=== PATIENT | male | born 1980 | race Two or more races ===

== ENCOUNTER → 2016-06-19 | Emergency (ER) | payer MEDICARE, MEDICAID ==
[~2016-06-19] VITALS: Ht 170.2 cm; Wt 104.3 kg
[~2016-06-19] MED LIST: Acetaminophen 500mg (ES) tab ORAL ONE; BACITRACIN ZIN120 GM TP; BACITRACIN15 GM TOPIC; Bacitracin Oint UD TOPIC ONE; CLINDAMYCIN HC300 MG ORAL; CLOTRIMAZOLE AF30 GM TOPIC; DOUBLE ANTIBI28.4 GM TP; IBUPROFEN600 MG ORAL
[2016-06-19 15:42] VITALS: BP 116/83
--- NOTE | 2016-06-19 16:20 | Emergency Room Report ---
History of Present Illness General Chief Complaint: Pain Source: Patient Present Illness HPI 35 YO male presents emergency department complaining of 10/ 10 in severity right hand pain status post accidentally bumping his hand into a concrete wall. Patient also reports small open wound that is not bleeding at this time. Patient states that he is up to date with tetanus vaccination. he states pain is exacerbated upon movement of the right hand for example making a fist. Patient denies bruising reports mild swelling denies erythema or increased temperature palpation patient denies previous injury. Denies numbness tingling or loss of sensation or gross motor movements of the extremities, incontinence of bowel or bladder. Denies CP, Palpitations, LOC, AMS, dizziness, Changes in Vision, Sensation, paresthesias, or a sudden severe headache. Allergies: Coded Allergies: No Known Allergies (Unverified , 12/28/14) Patient History Past Medical History: see triage record Past Surgical History: none Pertinent Family History: none Immunizations: UTD Reviewed Nursing Documentation: PMH: Agreed, PSxH: Agreed Nursing Documentation-PMH Past Medical History: No Stated History Review of Systems All Other Systems: negative except mentioned in HPI Physical Exam Vital Signs Date Time Temp Pulse Resp B/P Pulse Ox O2 Delivery O2 Flow Rate FiO2 06/19/16 15:12 97.3 100 16 116/83 98 Room Air Sp02 EP Interpretation: reviewed, normal General Appearance: no apparent distress, alert, GCS 15, non-toxic Head: normocephalic, atraumatic Eyes: bilateral eye PERRL, bilateral eye normal inspection ENT: hearing grossly normal, normal pharynx, no angioedema, normal voice Neck: full range of motion, supple/symm/no masses Respiratory: chest non-tender, lungs clear, normal breath sounds, speaking full sentences Cardiovascular #1: regular rate, rhythm, no edema Rectal: deferred Musculoskeletal: back normal, gait/station normal, normal range of motion, tender - TTP to lateral aspect of the right hand and the dorsum of the 4th and 5th metacarpals, mild swelling noted, no bruising, no erythema, pt. had FROM with pain, pt. is NVI, small 0.5cm superficial abrasion noted which is older in appearance, no evidence of secondary infection. Neurologic: alert, oriented x3, responsive, motor strength/tone normal, sensory intact, speech normal Psychiatric: judgement/insight normal, memory normal, mood/affect normal, no suicidal/homicidal ideation Skin: normal color, no rash, warm/dry, well hydrated, wd healing/no infection noted - small 0.5cm superficial abrasion noted which is older in appearance, no evidence of secondary infection. , abrasions - small 0.5cm superficial abrasion noted which is older in appearance, no evidence of secondary infection. Lymphatic: no adenopathy Medical Decision Making PA Attestation Dr. Archer is my supervising Physician whom patient management has been discussed with. Diagnostic Impression: Primary Impression: Contusion of hand, right Additional Impression: Abrasion ER Course 35 YO male presents emergency department complaining of 10/ 10 in severity right hand pain status post accidentally bumping his hand into a concrete wall. Patient also reports small open wound that is not bleeding at this time. Patient states that he is up to date with tetanus vaccination. he states pain is exacerbated upon movement of the right hand for example making a fist. Ddx considered but are not limited to Fracture, dislocation, contusion, Sprain/ Strain/Spasm, Epidural abscess, Neoplastic mets. Vital signs: are WNL, pt. is afebrile H&PE are most consistent with right hand contusion, and superficial older abrasion, no evidence of infection, will r/o fx with imaging. ORDERS: - X-ray Right hand 3 views - negative for fx, Dislocation, or significant soft tissue injury, per preliminary read in ED by Dr. Archer ED INTERVENTIONS: - 500mg Tylenol PO -Bacitracin is applied after wound cleaning by ED research laboratory technician, pt. tolerated well. DISCHARGE: At this time pt. is stable for d/c to home. Will provide printed patient care instructions, and any necessary prescriptions. Care plan and follow up instructions have been discussed with the patient prior to discharge. Last Vital Signs Date Time Temp Pulse Resp B/P Pulse Ox O2 Delivery O2 Flow Rate FiO2 06/19/16 15:42 97.3 100 16 116/83 98 Room Air Disposition: HOME, SELF-CARE Condition: Stable Scripts Bacitracin Zinc/Polymyx B Sulf (Double Antibiotic Ointment) 28.4 Gm Oint...g. 1 APPLIC TP BID, #28.4 GM Prov: So Sandoval 06/19/16 Ibuprofen* (MOTRIN*) 600 Mg Tablet 600 MG ORAL THREE TIMES A DAY, #30 TAB 0 Refills Prov: So Sandoval 06/19/16 Patient Instructions: Abrasion, [id number], Contusion Additional Instructions: Take medications as directed. Follow up with PCP in 3-5 days Return sooner to ED if new symptoms occur, or current symptoms become worse. - Please note that this Emergency Department Report was dictated using [employer] technology software, occasionally this can lead to erroneous entry secondary to interpretation by the dictation equipment. So Sandoval Jun 19, 2016 16:20
--- NOTE | 2016-06-19 16:39 | Diagnostic Imaging Report ---
Indication: PAIN Technique: 3 views right hand Comparison: none Findings: Small sclerotic opacity, likely bone island within the first distal phalanx. No acute fractures. No dislocations. Joint spaces are preserved. Impression: No acute bony trauma This agrees with the preliminary interpretation provided by the emergency room physician
== END | disposition home or self-care (01) ==
LOC: EMR 16:30
DX: S60.221A Contusion of right hand, initial encounter (principal); S60.511A Abrasion of right hand, initial encounter; X58.XXXA Exposure to other specified factors, initial encounter; Y93.9 Activity, unspecified; Y92.9 Unspecified place or not applicable
CPT/HCPCS: 99284

== ENCOUNTER 2016-12-08 16:26 | Emergency (ER) | payer MEDICARE, MEDICAID ==
[~2016-12-08] VITALS: Ht 170.2 cm; Wt 104.3 kg
[~2016-12-08 16:26] MED LIST changes: -Acetaminophen 500mg (ES) tab ORAL ONE; -Bacitracin Oint UD TOPIC ONE
[2016-12-08 16:45] VITALS: BP 128/82
--- NOTE | 2016-12-08 16:52 | Emergency Room Report ---
History of Present Illness General Chief Complaint: Abdominal Pain Source: Patient Present Illness HPI The patient presents with left upper quadrant pain nausea and loose stools. He denies any vomiting. He denies fever. The pain is 10/10 at this time. Feels like burning pressure. Doesn't have any medication for this. He's had this problem in the past. Has had for about a week (though RN notes state 2 weeks). Right now the pain is constant. Denies any fevers, cough, upper respiratory symptoms, dysuria. He feels weak. Doesn't take any medication for this. The patient denies any major medical problems. Denies alcohol or smoking. No recent travel, antibiotics, unusual foods or contacts. Allergies: Coded Allergies: No Known Allergies (Unverified , 12/28/14) Patient History Past Medical History: see triage record Social History: Denies: alcohol use, smoking Social History Narrative Volunteer Reviewed Nursing Documentation: PMH: Agreed, PSxH: Agreed Nursing Documentation-PMH Past Medical History: No Stated History Review of Systems All Other Systems: negative except mentioned in HPI Physical Exam Vital Signs Date Time Temp Pulse Resp B/P Pulse Ox O2 Delivery O2 Flow Rate FiO2 12/08/16 16:33 97.3 100 18 120/80 98 Room Air Sp02 EP Interpretation: reviewed, normal General Appearance: well appearing, no apparent distress, GCS 15 Head: normocephalic Eyes: bilateral eye PERRL, bilateral eye normal inspection ENT: moist mucus membranes Neck: supple Respiratory: lungs clear, normal breath sounds Cardiovascular #1: regular rate, rhythm Cardiovascular #2: 2+ radial (R) Gastrointestinal: normal inspection, normal bowel sounds, no mass, non- distended, no guarding, no rebound, tenderness - epigastric, overweight Musculoskeletal: back normal, gait/station normal, normal range of motion Neurologic: alert, oriented x3, grossly normal Psychiatric: mood/affect normal Skin: normal inspection, warm/dry Medical Decision Making Diagnostic Impression: Primary Impression: Gastroenteritis ER Course Patient presents with epigastric pain and nausea. Differential includes gastritis, ulcer, GERD, diverticulitis amongst others. He is in his hands no surgical problem at this time. Evaluation with labs and x-ray. In addition he' ll be treated with IV hydration, Zofran and Pepcid with some morphine. Labs remarkable for normal WBC and H/H. Rest unremarkable. Stool pend. Xray below. Patient improved with treatment. Discussed pending test. Patient stable for outpatient observation and treatment. Laboratory Tests Test 12/08/16 16:50 White Blood Count 8.1 K/UL (4.8-10.8) Red Blood Count 4.09 M/UL (4.70-6.10) L Hemoglobin 12.5 G/DL (14.2-18.0) L Hematocrit 36.0 % (42.0-52.0) L Mean Corpuscular Volume 88 FL (80-99) Mean Corpuscular Hemoglobin 30.6 PG (27.0-31.0) Mean Corpuscular Hemoglobin Concent 34.7 G/DL (32.0-36.0) Red Cell Distribution Width 13.6 % (11.6-14.8) Platelet Count 251 K/UL (150-450) Mean Platelet Volume 6.9 FL (6.5-10.1) Neutrophils (%) (Auto) 50.3 % (45.0-75.0) Lymphocytes (%) (Auto) 37.1 % (20.0-45.0) Monocytes (%) (Auto) 9.3 % (1.0-10.0) Eosinophils (%) (Auto) 1.9 % (0.0-3.0) Basophils (%) (Auto) 1.4 % (0.0-2.0) Sodium Level 136 mEQ/L (135-145) Potassium Level 3.5 mEQ/L (3.4-4.9) Chloride Level 97 mEQ/L (98-107) L Carbon Dioxide Level 28 mEQ/L (20-30) Anion Gap 11 (5-15) Blood Urea Nitrogen 9 mg/dL (7-23) Creatinine 1.2 mg/dL (0.7-1.2) Estimate Glomerular Filtration Rate > 60 mL/min (>60) Glucose Level 77 mg/dL (74-106) Calcium Level 9.7 mg/dL (8.6-10.2) Total Bilirubin 0.5 mg/dL (0.0-1.2) Aspartate Amino Transferase (AST) 33 U/L (5-40) Alanine Aminotransferase (ALT) 23 U/L (3-41) Alkaline Phosphatase 74 U/L (40-129) Total Protein 7.9 g/dL (6.6-8.7) Albumin 4.4 g/dL (3.5-5.2) Globulin 3.5 g/dL Albumin/Globulin Ratio 1.2 (1.0-2.7) Lipase 16 U/L (< 60) EKG Diagnostic Results Rate: normal Rhythm: NSR Rhythm Strip Diag. Results EP Interpretation: yes Rhythm: NSR, no PVC's, no ectopy Other X-Ray Diagnostic Results Other X-Ray Diagnostic Results : X-Ray ordered: abd # of Views/Limited Vs Complete: 2 View Indication: Pain EP Interpretation: Yes Interpretation: nonspecific bowel gas, no sbo, other - no calcifications masses Impression: No acute disease Interpreting ER Provider: Electronically signed by Sincere Evans MD Last Vital Signs Date Time Temp Pulse Resp B/P Pulse Ox O2 Delivery O2 Flow Rate FiO2 12/08/16 18:59 98 18 125/82 100 Room Air 12/08/16 18:45 97.4 Status: improved Disposition: HOME, SELF-CARE Condition: Improved Scripts Diphenoxylate HCl/Atropine (Lomotil Tablet) 1 Each Tablet 1 EACH PO BID, #6 TAB Prov: Sincere Evans M.D. 12/08/16 Ondansetron Odt* (ZOFRAN ODT*) 4 Mg Tab.rapdis 4 MG ORAL Q8H Y for Nausea & Vomiting, #6 TAB 1 Refill Prov: Sincere Evans M.D. 12/08/16 Sincere Evans M.D. Dec 08, 2016 16:52
[2016-12-08] MEDS ORDERED: Morphine Sulfate 4mg/ml Inj IVP ONE (17:00)
[2016-12-08] MEDS ORDERED: Famotidine 20 MG/ 2ML VIAL IVP ONE (17:00)
[2016-12-08 17:26] LABS: BASOPHILS % (AUTO) 1.4 % (0.0-2.0); EOSINOPHILS % (AUTO) 1.9 % (0.0-3.0); LYMPHOCYTES % (AUTO) 37.1 % (20.0-45.0); MEAN CORPUSCULAR HEMOGLOBIN 30.6 PG (27.0-31.0); MEAN CORPUSCULAR HGB CONC 34.7 G/DL (32.0-36.0); MEAN CORPUSCULAR VOLUME 88 FL (80-99); MEAN PLATELET VOLUME 6.9 FL (6.5-10.1); MONOCYTES % (AUTO) 9.3 % (1.0-10.0); NEUTROPHILS % (AUTO) 50.3 % (45.0-75.0); PLATELET COUNT 251 K/UL (150-450); RED BLOOD COUNT 4.09 M/UL (4.70-6.10); RED CELL DISTRIBUTION WIDTH 13.6 % (11.6-14.8); WHITE BLOOD COUNT 8.1 K/UL (4.8-10.8)
[2016-12-08 17:46] LABS: ALANINE AMINOTRANSFERASE 23 U/L (3-41); ALBUMIN/GLOBULIN RATIO 1.2 (1.0-2.7); ANION GAP 11 (5-15); ASPARTATE AMINO TRANSFERASE 33 U/L (5-40); CALCIUM 9.7 mg/dL (8.6-10.2); CARBON DIOXIDE 28 mEQ/L (20-30); CHLORIDE 97 mEQ/L (98-107); CREATININE 1.2 mg/dL (0.7-1.2); GLOMERULAR FILTRATION RATE > 60 mL/min (>60); HEMOLYSIS 4; LIPASE 16 U/L (< 60); POTASSIUM 3.5 mEQ/L (3.4-4.9); SODIUM 136 mEQ/L (135-145); TOTAL PROTEIN 7.9 g/dL (6.6-8.7)
[2016-12-08] MEDS ORDERED: LOMOTIL TABLET1 EAC1 PO (18:25)
[2016-12-08] MEDS ORDERED: ZOFRAN ODT4 MG ORAL (18:25)
[2016-12-08 18:45] VITALS: BP 122/85
[2016-12-08 18:59] VITALS: BP 125/82
--- NOTE | 2016-12-09 10:42 | Diagnostic Imaging Report ---
Indication: Abdominal pain Comparison: None Single view of the abdomen obtained Findings: Bowel gas pattern is nonspecific. No mass, ectopic calcifications, or abnormal gas collections are identified. The bones are unremarkable. Impression: No acute findings
--- NOTE | 2016-12-09 17:51 | Cardiology Report ---
APPROVED REPORT EKG Measurement Heart [id number] Normal sinus rhythm Normal ECG
== END 2016-12-08 19:08 | disposition home or self-care (01) ==
LOC: EMR 17:35
DX: K52.9 Noninfective gastroenteritis and colitis, unspecified (principal); E66.3 Overweight
CPT/HCPCS: 36415; 74000; 80053; 83690; 85025; 87324; 93005; 96374; 96375; 99284; J2270; J2405; S0028

== ENCOUNTER 2017-03-29 17:41 | Emergency (ER) | payer MEDICARE, MEDICAID ==
[~2017-03-29] VITALS: Ht 170.2 cm; Wt 90.7 kg
[~2017-03-29 17:41] MED LIST changes: +LOMOTIL TABLET1 EAC1 PO; +ZOFRAN ODT4 MG ORAL
--- NOTE | 2017-03-29 18:31 | Emergency Room Report ---
History of Present Illness General Chief Complaint: Vomiting Source: Patient, Family Member Present Illness HPI 36-year-old male presenting with nausea vomiting and diarrhea for one day Pt reports n/v, 2 episodes of nbnb vomiting, 2 episodes of watery non bloody diarrhea Also complaining of generalized abdominal pain which has improved since coming to the emergency room Denies fever, chills. No hx of abdominal surgeries. No hx of endoscopies/colonoscopies. Patient also has schizophrenia, not any meds, here with his father, denies currently hearing voices. Denies any SI or HI Allergies: Coded Allergies: No Known Allergies (Unverified , 12/28/14) Patient History Past Medical History: see triage record Past Surgical History: none Pertinent Family History: none Reviewed Nursing Documentation: PMH: Agreed, PSxH: Agreed Nursing Documentation-PMH Past Medical History: No Stated History Review of Systems All Other Systems: negative except mentioned in HPI Physical Exam Vital Signs Date Time Temp Pulse Resp B/P (MAP) Pulse Ox O2 Delivery O2 Flow Rate FiO2 03/29/17 18:00 97.9 106 20 138/78 99 Room Air Sp02 EP Interpretation: reviewed, normal General Appearance: normal inspection, well appearing, no apparent distress, alert, GCS 15, non-toxic Head: normocephalic, atraumatic Eyes: bilateral eye normal inspection, bilateral eye PERRL, bilateral eye EOMI ENT: normal ENT inspection, normal pharynx, normal voice, moist mucus membranes Neck: normal inspection, full range of motion, supple Respiratory: normal inspection, lungs clear, normal breath sounds, no respiratory distress, no retraction, no wheezing, speaking full sentences, chest symmetrical Cardiovascular #1: normal inspection, regular rate, rhythm, normal capillary refill Cardiovascular #2: 2+ radial (R), 2+ radial (L) Gastrointestinal: normal inspection, non tender, soft, non-distended, no guarding Musculoskeletal: normal inspection, back normal, normal range of motion, non- tender Neurologic: normal inspection, alert, oriented x3, responsive, motor strength/ tone normal, sensory intact, normal gait, speech normal Psychiatric: normal inspection, judgement/insight normal, memory normal, no suicidal/homicidal ideation, no delusions Skin: normal inspection, normal color, no rash, warm/dry, well hydrated, normal turgor Medical Decision Making Diagnostic Impression: Primary Impression: Nausea vomiting and diarrhea ER Course 36-year-old male with vomiting diarrhea Differential Diagnosis: Gastritis, gastroenteritis, cholecystitis, appendicitis, diverticulitis, UTI/ pyelo At this time abdomen is soft nontender, not likely to have acute intra- abdominal surgical pathology, will hold CT for now. Plan: Basic labs, ua, ekg Pepcid, maalox, pain control, IVF ER course: Patient has remained stable during ED stay. Pain improved. Repeat abdominal exam is nontender. Disposition: Patient is to be discharged to home. Patient is instructed to follow up with their primary care doctor within 5 days. Strict return precautions discussed with patient such as fever, chills, worsening/severe abdominal pain, nausea, vomiting, black or bloody stools, which may indicate severe illness. Patient verbalizes understanding and agrees with plan. Please note that this Emergency Department Report was dictated using [email or web address] preventative medicine technology software, occasionally this can lead to erroneous entry secondary to interpretation by the dictation equipment Rhythm Strip EP Interpretation: Yes Rate: 98 Rhythm: NSR, no PVCs, no ectopy Laboratory Tests Test 03/29/17 18:05 03/29/17 18:36 Urine Color Zee Urine Appearance Clear Urine pH 5 (4.5-8.0) Urine Specific [place] 1.025 (1.005-1.035) Urine Protein 1+ (NEGATIVE) H Urine Glucose (UA) Negative (NEGATIVE) Urine Ketones Negative (NEGATIVE) Urine Occult Blood 1+ (NEGATIVE) H Urine Nitrite Negative (NEGATIVE) Urine Bilirubin Negative (NEGATIVE) Urine Ictotest Negative Urine Urobilinogen 4 MG/DL (0.0-1.0) H Urine Leukocyte Esterase 1+ (NEGATIVE) H Urine RBC 2-4 /HPF (0 - 0) H Urine WBC 0-2 /HPF (0 - 0) Urine Squamous Epithelial Cells None /LPF (NONE/OCC) Urine Bacteria Occasional /HPF (NONE) Urine Mucus Many /LPF (NONE/OCC) H White Blood Count 6.4 K/UL (4.8-10.8) Red Blood Count 4.36 M/UL (4.70-6.10) L Hemoglobin 12.3 G/DL (14.2-18.0) L Hematocrit 38.4 % (42.0-52.0) L Mean Corpuscular Volume 88 FL (80-99) Mean Corpuscular Hemoglobin 28.3 PG (27.0-31.0) Mean Corpuscular Hemoglobin Concent 32.1 G/DL (32.0-36.0) Red Cell Distribution Width 13.6 % (11.6-14.8) Platelet Count 255 K/UL (150-450) Mean Platelet Volume 6.2 FL (6.5-10.1) L Neutrophils (%) (Auto) 60.0 % (45.0-75.0) Lymphocytes (%) (Auto) 31.5 % (20.0-45.0) Monocytes (%) (Auto) 7.9 % (1.0-10.0) Eosinophils (%) (Auto) 0.2 % (0.0-3.0) Basophils (%) (Auto) 0.5 % (0.0-2.0) Sodium Level 139 MMOL/L (136-145) Potassium Level 3.4 MMOL/L (3.5-5.1) L Chloride Level 102 MMOL/L (98-107) Carbon Dioxide Level 30 MMOL/L (21-32) Anion Gap 7 mmol/L (5-15) Blood Urea Nitrogen 14 mg/dL (7-18) Creatinine 1.2 MG/DL (0.55-1.30) Estimate Glomerular Filtration Rate > 60 mL/min (>60) Glucose Level 97 MG/DL (74-106) Calcium Level 8.4 MG/DL (8.5-10.1) L Total Bilirubin 1.0 MG/DL (0.2-1.0) Aspartate Amino Transferase (AST) 29 U/L (15-37) Alanine Aminotransferase (ALT) 31 U/L (12-78) Alkaline Phosphatase 68 U/L (46-116) Total Protein 7.7 G/DL (6.4-8.2) Albumin 3.7 G/DL (3.4-5.0) Globulin 4.0 g/dL Albumin/Globulin Ratio 0.9 (1.0-2.7) L Lipase 63 U/L (73-393) L Last Vital Signs Date Time Temp Pulse Resp B/P (MAP) Pulse Ox O2 Delivery O2 Flow Rate FiO2 03/29/17 18:00 97.9 106 20 138/78 99 Room Air Referrals: [facility],REFERRING (PCP) Clayton Melara M.D. Mar 29, 2017 18:31
[2017-03-29 18:35] VITALS: BP 129/81
[2017-03-29 18:47] LABS: APPEARANCE,URINE CLEAR; KETONES,URINE NEGATIVE (NEGATIVE); LEUKOCYTE ESTERASE ,URINE 1+ (NEGATIVE); NITRITE,URINE NEGATIVE (NEGATIVE); PH,URINE 5 (4.5-8.0); PROTEIN,URINE 1+ (NEGATIVE); UROBILINOGEN,URINE 4 MG/DL (0.0-1.0)
[2017-03-29 18:51] LABS: BASOPHILS % (AUTO) 0.5 % (0.0-2.0); EOSINOPHILS % (AUTO) 0.2 % (0.0-3.0); LYMPHOCYTES % (AUTO) 31.5 % (20.0-45.0); MEAN CORPUSCULAR HEMOGLOBIN 28.3 PG (27.0-31.0); MEAN CORPUSCULAR HGB CONC 32.1 G/DL (32.0-36.0); MEAN CORPUSCULAR VOLUME 88 FL (80-99); MEAN PLATELET VOLUME 6.2 FL (6.5-10.1); MONOCYTES % (AUTO) 7.9 % (1.0-10.0); PLATELET COUNT 255 K/UL (150-450); RED BLOOD COUNT 4.36 M/UL (4.70-6.10); RED CELL DISTRIBUTION WIDTH 13.6 % (11.6-14.8); WHITE BLOOD COUNT 6.4 K/UL (4.8-10.8)
[2017-03-29 18:59] LABS: WBC,URINE 0-2 /HPF (0 - 0)
[2017-03-29 19:00] LABS: BACTERIA,URINE OCCASIONAL /HPF; ICTOTEST NEGATIVE; MUCUS,URINE MANY /LPF (NONE/OCC)
[2017-03-29 19:05] LABS: ANION GAP 7 mmol/L (5-15); CALCIUM 8.4 MG/DL (8.5-10.1); CARBON DIOXIDE 30 MMOL/L (21-32); CHLORIDE 102 MMOL/L (98-107); CREATININE 1.2 MG/DL (0.55-1.30); GLOMERULAR FILTRATION RATE > 60 mL/min (>60); POTASSIUM 3.4 MMOL/L (3.5-5.1); SODIUM 139 MMOL/L (136-145)
[2017-03-29 19:10] LABS: ALANINE AMINOTRANSFERASE 31 U/L (12-78); ALBUMIN/GLOBULIN RATIO 0.9 (1.0-2.7); ASPARTATE AMINO TRANSFERASE 29 U/L (15-37); LIPASE 63 U/L (73-393); TOTAL PROTEIN 7.7 G/DL (6.4-8.2)
[2017-03-29] MEDS: Lidocaine 2% Visc 15ml soln ORAL ONE (19:11)
[2017-03-29] MEDS: Mylanta II UD 30ml ORAL ONE (19:11)
[2017-03-29] MEDS: Dicyclomine HCl 10mg/5ml oral soln ORAL ONE (19:12)
[2017-03-29 19:25] VITALS: BP 116/60
[2017-03-29 19:28] VITALS: BP 116/60
== END 2017-03-29 19:29 | disposition home or self-care (01) ==
LOC: EMR 18:10
DX: R11.2 Nausea with vomiting, unspecified (principal); R19.7 Diarrhea, unspecified
CPT/HCPCS: 36415; 80053; 81003; 83690; 85025; 96374; 96375; 99284; J2405

== ENCOUNTER 2017-04-08 01:28 | Emergency (ER) | payer MEDICARE, MEDICAID ==
[~2017-04-08] VITALS: Ht 170.2 cm; Wt 90.7 kg
[2017-04-08 01:40] VITALS: BP 112/60
[2017-04-08] MEDS ORDERED: Tetanus/Diptheria/Pertussis Vaccine 0.5ml Syr IM ONE (01:45)
[2017-04-08] MEDS ORDERED: Hydrogen Peroxide 473ml Bottle TOPIC ONE (02:45)
[2017-04-08] MEDS ORDERED: BACITRACIN15 GM TOPIC (02:49)
[2017-04-08 02:55] VITALS: BP 112/60
[2017-04-08] MEDS ORDERED: Bacitracin Oint UD TOPIC ONE (03:00)
--- NOTE | 2017-04-08 04:07 | Emergency Room Report ---
History of Present Illness General Chief Complaint: Upper Extremity Injury Source: Patient Present Illness HPI 36-year-old male presents ED complaining of right hand pain and bleeding. States that last night he tripped and fell landing on his right hand. Notes multiple abrasions. Tetanus unknown. Pain as throbbing, 10 out of 10, nonradiating. Denies any other injuries. No other aggravating relieving factors. Denies any other associated symptoms Allergies: Coded Allergies: No Known Allergies (Unverified , 12/28/14) Patient History Past Medical History: none Past Surgical History: none Pertinent Family History: none Social History: Denies: smoking, alcohol use, drug use Immunizations: UTD Reviewed Nursing Documentation: PMH: Agreed, PSxH: Agreed Nursing Documentation-PMH Past Medical History: No Stated History Review of Systems All Other Systems: negative except mentioned in HPI Physical Exam Vital Signs Date Time Temp Pulse Resp B/P (MAP) Pulse Ox O2 Delivery O2 Flow Rate FiO2 04/08/17 01:33 97.5 104 18 112/60 98 Room Air Sp02 EP Interpretation: reviewed, normal General Appearance: no apparent distress, alert, GCS 15, non-toxic, obese Head: normocephalic Eyes: bilateral eye normal inspection, bilateral eye PERRL ENT: normal ENT inspection Neck: normal inspection Respiratory: normal inspection Cardiovascular #1: normal inspection Gastrointestinal: normal inspection Rectal: deferred Genitourinary: no CVA tenderness Musculoskeletal: tender - R hand, abrasions noted over 2nd and 3rd knuckles Neurologic: alert, oriented x3, responsive, motor strength/tone normal, sensory intact, speech normal Psychiatric: normal inspection Skin: normal inspection Lymphatic: normal inspection Medical Decision Making Diagnostic Impression: Primary Impression: Abrasion ER Course Hospital Course 36-year-old M presents to ED complaining of R hand pain s/p trip and fall Differential diagnoses include: Fracture, dislocation, sprain, contusion Clinical course Patient placed on stretcher. After initial history and physical, I ordered Tdap and Xrays of R hand Xrays prelim read shows no acute fracture/dislocation. Wound irrigated. There are abrasions noted to 2nd and 3rd knuckles. bacitracin applied. dressing applied Diagnosis - abrasion Stable and discharged to home with prescription for bacitracin. wound care instructions given. Followup with PMD. Return to ED if symptoms recur or worsen Other X-Ray Diagnostic Results Other X-Ray Diagnostic Results : X-Ray ordered: R hand # of Views/Limited Vs Complete: 3 View Indication: Pain EP Interpretation: Yes Interpretation: no dislocation, no soft tissue swelling, no fractures Impression: No acute disease Electronically Signed by: Electronically signed by Howie Rodriguez MD Last Vital Signs Date Time Temp Pulse Resp B/P (MAP) Pulse Ox O2 Delivery O2 Flow Rate FiO2 04/08/17 02:55 97.5 18 112/60 98 Room Air 04/08/17 01:33 104 Status: improved Disposition: HOME, SELF-CARE Condition: Stable Scripts Bacitracin (Bacitracin) 28.4 Gm Oint...g. 1 APPLIC TOPIC THREE TIMES A DAY, #28.4 GM Prov: HOWIE RODRIGUEZ M.D. 04/08/17 Referrals: NOT CHOSEN [facility]/,REFERRING (PCP) Patient Instructions: Abrasion, [id number] HOWIE RODRIGUEZ M.D. Apr 08, 2017 04:07
--- NOTE | 2017-04-11 11:02 | Diagnostic Imaging Report ---
Indication: Right hand pain Technique: 3 views right hand Comparison: none Findings: No acute fractures. No dislocations. The joint spaces are preserved. There is posterior soft tissue swelling Impression: No acute process This agrees with the preliminary interpretation provided by the emergency room physician
== END 2017-04-08 03:00 | disposition home or self-care (01) ==
LOC: EMR 02:27
DX: S60.511A Abrasion of right hand, initial encounter (principal); Z23 Encounter for immunization; W01.0XXA Fall on same level from slipping, tripping and stumbling without subsequent striking against object, initial encounter; Y92.9 Unspecified place or not applicable
CPT/HCPCS: 90471; 90715; 99283

== ENCOUNTER 2018-09-24 10:45 | Emergency (ER) | payer MEDICAID, MEDICARE ==
[~2018-09-24] VITALS: Ht 170.2 cm; Wt 90.7 kg
[2018-09-24] MEDS ORDERED: Acetaminophen 500mg (ES) tab ORAL ONE (11:15)
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
[2018-09-24 11:19] VITALS: BP 146/94
--- NOTE | 2018-09-24 11:25 | NUR ---
ED Nurse Note: PT TO CT VIA TAD.
--- NOTE | 2018-09-24 11:47 | NUR ---
ED Nurse Note: REPORT GIVEN TO ARNAV RANDOLPH.
--- NOTE | 2018-09-24 11:52 | NUR ---
ED Nurse Note:pt. is back
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
[2018-09-24] MEDS ORDERED: ACETAMINOPHEN500 M5 ORAL (12:49)
[2018-09-24] MEDS ORDERED: IBUPROFEN600 MG ORAL (12:50)
--- NOTE | 2018-09-24 13:00 | NUR ---
ER DISCHARGE NOTE: Patient is cleared to be discharged per ERMD, pt is aox4, on room air, with stable vital signs. pt was given dc and prescription instructions, pt was able to verbalize understanding, pt is able to ambulate with steady gait. pt took all belongings.
[2018-09-24 13:21] VITALS: BP 146/94
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
== END 2018-09-24 13:00 | disposition home or self-care (01) ==
LOC: EMR 11:41
DX: S00.83XA Contusion of other part of head, initial encounter (principal); Y04.2XXA Assault by strike against or bumped into by another person, initial encounter; Y92.9 Unspecified place or not applicable; E66.9 Obesity, unspecified; Z68.33 Body mass index [BMI] 33.0-33.9, adult
CPT/HCPCS: 70450; 70486; 99284